=== PATIENT | female | born 1965 | race Caucasian/White ===

== ENCOUNTER 2016-06-19 09:25 | Emergency (ER) | payer OTHER, BC ==
[2016-06-19] MEDS ORDERED: DIPH/PERTUSS(ACELL)/TETANUS VAC/PF 0.5 ML SYR (>=10YO) IM ONE (09:58)
[2016-06-19] MEDS ORDERED: OXYCODONE-ACETAMINOPHEN 5-325 MG TABLET PO ONE (09:58)
--- NOTE | 2016-06-19 11:28 | ER Document Report ---
HPI - HPI Patient complains to provider of: knee injury Onset: Yesterday Onset/Duration: Sudden Quality of pain: Sharp Pain Level: 5 Context: Patient states she tripped over someone else's leg falling on her left knee yesterday. Patient complains of pain and swelling. Associated Symptoms: Other - Left knee pain. denies: Fever Exacerbated by: Movement, Walking Relieved by: Denies Similar symptoms previously: No Recently seen / treated by doctor: No - ROS ROS below otherwise negative: Yes Systems Reviewed and Negative: Yes All other systems reviewed and negative - CONSTITUTIONAL Constitutional: DENIES: Fever - MUSCULOSKELETAL Musculoskeletal: REPORTS: Extremity pain, Swelling - DERM Skin Problems: Abrasion - NURSING COMMENTS Comment: Pt arrived to ED with c/o severe left knee pain s/p tripping yesterday at work and falling on left knee. Pt states she tried to ice and elevate leg but pain has increased. Pt has half dollar size abrasion to left knee with redness around site. Pt has increased pain with ambulations. Pt has slight swelling to left knee. Pt has even rise and fall of chest. Pt c/o severe pain to knee at this time. Family at bedside. Will continue to monitor. Past Medical History - General Information source: Patient - Social History Smoking Status: Current Every Day Smoker Cigarette use (# per day): Yes Chew tobacco use (# tins/day): No Frequency of alcohol use: Social Drug Abuse: None Occupation: restaurant Family History: Reviewed & Not Pertinent Patient has suicidal ideation: No Patient has homicidal ideation: No Renal/ Medical History: Denies: Hx Peritoneal Dialysis Psychiatric Medical History: Reports: Hx Depression Past Surgical History: Reports: Hx Orthopedic Surgery - b/l knees - Immunizations Hx Diphtheria, Pertussis, Tetanus Vaccination: No Vertical Provider Document - CONSTITUTIONAL Exam Limitations: No Limitations General Appearance: WD/WN, No Apparent Distress - INFECTION CONTROL TRAVEL OUTSIDE OF THE [place] IN LAST 30 DAYS: No - HEENT HEENT: Atraumatic, Normocephalic - NECK Neck: Normal Inspection - RESPIRATORY Respiratory: No Respiratory Distress O2 Sat by Pulse Oximetry: 96 - CARDIOVASCULAR Pulses: Normal: Dorsalis pedis - BACK Back: Normal Inspection - MUSCULOSKELETAL/EXTREMETIES Musculoskeletal/Extremeties: MAEW, Tender - Patient with tenderness over left patella, patient with small joint effusion to left knee. No laxity with varus or valgus maneuvers. Patellar tendon intact. Patient with overlying abrasion to left knee, Edema - NEURO Level of Consciousness: Awake, Alert, Appropriate Motor/Sensory: No Motor Deficit - DERM Integumentary: Warm, Dry Notes: Abrasion to left knee Course - Vital Signs Vital signs: Temp Pulse Resp BP Pulse Ox 98.1 F 86 20 128/72 H 96 06/19/16 09:40 06/19/16 09:41 06/19/16 09:40 06/19/16 09:40 06/19/16 09:40 - Diagnostic Test Radiology reviewed: Reports reviewed Procedures - Immobilization Left Knee Pre-Proc Neuro Vasc Exam: Normal Immobilizer type: Knee immobilizer Performed by: PCT Post-Proc Neuro Vasc Exam: Normal Alignment checked and good: Yes Discharge - Discharge Clinical Impression: Knee effusion, left, Abrasion Condition: Stable Disposition: HOME, SELF-CARE Instructions: Knee Immobilizing Splint ([facility]), Sprained Knee ([facility]), Oral Narcotic Medication ([facility]), Suspected Internal Knee Injury ([facility]), Use of Crutches ([facility]), Ice & Elevation ([facility]), Tetanus Immunization Given ([facility]), Abrasions ([facility]) Additional Instructions: Return immediately for any new or worsening symptoms Followup with your primary care provider, call tomorrow to make a followup appointment Follow up with orthopedic Dr. for any continued pain or problems Weightbearing as tolerated Wear immobilizer for the next 4-5 days and then remove. Prescriptions: Oxycodone HCl/Acetaminophen [Percocet 5-325 mg Tablet] 1 tab PO ASDIR PRN #15 tablet PRN Reason: Forms: Return to Work Referrals: [facility] [Provider Group] - Follow up as needed
[2016-06-19 11:49] VITALS: BP 124/68
== END 2016-06-19 11:53 | disposition home or self-care (01) ==
LOC: ER 09:25
DX: S80.212A Abrasion, left knee, initial encounter (principal); M25.462 Effusion, left knee; W01.0XXA Fall on same level from slipping, tripping and stumbling without subsequent striking against object, initial encounter; Y92.511 Restaurant or cafe as the place of occurrence of the external cause; Y99.0 Civilian activity done for income or pay; F17.210 Nicotine dependence, cigarettes, uncomplicated; Z98.890 Other specified postprocedural states
CPT/HCPCS: 99283; 90471; 73562; 90715; L1830

== ENCOUNTER 2018-07-14 03:44 | Emergency (ER) | payer BC, OTHER ==
[2018-07-14] MEDS ORDERED: ONDANSETRON HCL INJ/PF 4 MG/2 ML SDV IV ONE (04:15)
[2018-07-14] MEDS ORDERED: NORMAL SALINE 1000 ML 1,000 ML IV ONE (04:15)
[2018-07-14 04:41] LABS: ABSOLUTE LYMPHOCYTES (AUTO) 0.6 10^3/uL (0.5-4.7); ABSOLUTE MONOCYTES (AUTO) 0.4 10^3/uL (0.1-1.4); ABSOLUTE NEUT (AUTO) 5.2 10^3/uL (1.7-8.2); BASOPHILS % (AUTO) 0.5 % (0-2); HEMATOCRIT 49.9 % (36.0-47.0); HEMOGLOBIN 17.4 g/dL (12.0-15.5); LYMPHOCYTES % (AUTO) 9.8 % (13-45); MEAN CORPUSCULAR HEMOGLOBIN 31.5 pg (27.0-33.4); MEAN CORPUSCULAR HGB CONC 34.8 g/dL (32.0-36.0); MEAN CORPUSCULAR VOLUME 91 fl (80-97); MONOCYTES % (AUTO) 6.4 % (3-13); PLATELET COUNT 226 10^3/uL (150-450); RED BLOOD COUNT 5.51 10^6/uL (3.72-5.28); RED CELL DISTRIBUTION WIDTH 13.5 % (11.5-14.0); SEGMENTED NEUTROPHILS % (AUTO) 83.3 % (42-78); TOTAL CELLS COUNTED % (AUTO) 100 %; WHITE BLOOD COUNT 6.3 10^3/uL (4.0-10.5)
[2018-07-14 04:55] LABS: BLOOD UREA NITROGEN 21 mg/dL (7-20); CALCIUM 9.2 mg/dL (8.4-10.2); CARBON DIOXIDE 29 mmol/L (22-30); CHLORIDE 97 mmol/L (98-107); GLUCOSE 137 mg/dL (75-110); POTASSIUM 4.2 mmol/L (3.6-5.0); SODIUM 137.4 mmol/L (137-145)
[2018-07-14 04:56] LABS: ALANINE AMINOTRANSFERASE 53 U/L (9-52); ALBUMIN 4.4 g/dL (3.5-5.0); ALKALINE PHOSPHATASE 103 U/L (38-126); ANION GAP 11 (5-19); ASPARTATE AMINO TRANSFERASE 52 U/L (14-36); BILIRUBIN,DIRECT 0.3 mg/dL (0.0-0.4); BILIRUBIN,TOTAL 0.4 mg/dL (0.2-1.3); LIPASE 72.1 U/L (23-300)
--- NOTE | 2018-07-14 05:03 | RADIOLOGY REPORT (SQ) ---
CLINICAL HISTORY: cough, fever, vomiting COMPARISON: None. 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 Lungs are clear without consolidation, atelectasis, mass or edema. There is no pleural effusion. There is no pneumothorax. There are no acute osseous findings. IMPRESSION: Clear lungs.
[2018-07-14 05:35] LABS: A TYPE INFLUENZA AG NEGATIVE (NEGATIVE); B INFLUENZA AG NEGATIVE (NEGATIVE)
--- NOTE | 2018-07-14 05:46 | ER Document Report ---
Entered by NEY JOHNSON SCRIBE 07/14/18 0422 Acting as scribe for:KATHARINE ASHTON DO ED Flu Like - General Chief Complaint: Flu Symptoms Stated Complaint: FLU LIKE SYMPTOMS Time Seen by Provider: 07/14/18 04:08 Primary Care Provider: TULIO MAIN MD [Primary Care Provider] - Follow up as needed Mode of Arrival: Ambulatory Information source: Patient Notes: Patient is a 52 year old female presenting to the emergency department complain ing of multiple symptoms including cough, congestion and a fever onset 4 days ago. Patient states she initially attributed her cough to a chest cold but states her symptoms have been worsening. She states she is unable to hold any food or liquids down further stating she has been vomiting and having diarrhea since earlier this evening. She also complains of abdominal pain but attributes this to coughing and vomiting further stating "I'm going to get a six pack". She also reports a fever of 102.0 as well as a headache and nasal congestion. She reports taking her parents to the doctors office 4 days ago. She denies any hematemeis or blood in stool. TRAVEL OUTSIDE OF THE [place] IN LAST 30 DAYS: No - Related Data Allergies/Adverse Reactions: No Known Allergies Allergy (Unverified 06/19/16 09:44) Past Medical History - General Information source: Patient - Social History Smoking Status: Current Every Day Smoker Cigarette use (# per day): Yes Smoking Education Provided: No Frequency of alcohol use: Social Drug Abuse: None Family History: Reviewed & Not Pertinent Psychiatric Medical History: Reports: Hx Depression Past Surgical History: Reports: Hx Orthopedic Surgery - b/l knees - Immunizations Hx Diphtheria, Pertussis, Tetanus Vaccination: No Review of Systems - Review of Systems Constitutional: See HPI EENT: See HPI Cardiovascular: No symptoms reported Respiratory: See HPI, Cough Gastrointestinal: See HPI, Abdominal pain, Diarrhea, Vomiting Genitourinary: No symptoms reported Female Genitourinary: No symptoms reported Musculoskeletal: No symptoms reported Skin: No symptoms reported Hematologic/Lymphatic: No symptoms reported Neurological/Psychological: No symptoms reported -: Yes All other systems reviewed and negative Physical Exam - Vital signs Vitals: Temp Pulse Resp BP Pulse Ox 97.9 F 88 17 139/79 H 93 07/14/18 03:48 07/14/18 03:48 07/14/18 03:48 07/14/18 03:48 07/14/18 03:48 - Notes Notes: GENERAL: Alert, interacts well. No acute distress but does appear mildly uncomfortable. HEAD: Normocephalic, atraumatic. EYES: Pupils equal, round, and reactive to light. Extraocular movements intact. ENT: Oral mucosa moist, tongue midline. Mild nasal congestion. NECK: Full range of motion. Supple. Trachea midline. LUNGS: Clear to auscultation bilaterally, no wheezes, rales, or rhonchi. No respiratory distress. HEART: Regular rate and rhythm. No murmurs, gallops, or rubs. ABDOMEN: Soft, diffusely very mild tenderness to palpation. Non-distended. Bowel sounds present in all 4 quadrants. EXTREMITIES: Moves all 4 extremities spontaneously. NEUROLOGICAL: Alert and oriented x3. Normal speech. PSYCH: Normal affect, normal mood. SKIN: Warm, dry, normal turgor. No rashes or lesions noted. Course - Re-evaluation Re-evalutation: 07/14/18 05:44 CBC unremarkable, CMP grossly unremarkable, AST and ALT are both slightly elevated, lipase is normal, flu swabs are negative, chest x-ray shows no acute process. Vomiting has stopped, patient is feeling somewhat better. Patient is being given an oral challenge of water at this time. If she is able to hold it down for the next 30 minutes she will be discharged home with Gabo and Amaury lerner. - Vital Signs Vital signs: Temp Pulse Resp BP Pulse Ox 97.9 F 88 17 139/79 H 93 07/14/18 03:48 07/14/18 03:48 07/14/18 03:48 07/14/18 03:48 07/14/18 03:48 - Laboratory Result Diagrams: 07/14/18 04:25 07/14/18 04:25 Laboratory results interpreted by me: 07/14/18 07/14/18 04:25 04:25 RBC 5.51 H Hgb 17.4 H Hct 49.9 H Seg Neutrophils % 83.3 H Lymphocytes % 9.8 L Chloride 97 L BUN 21 H Creatinine 0.47 L Glucose 137 H AST 52 H ALT 53 H Discharge - Discharge Clinical Impression: Nausea vomiting and diarrhea Condition: Stable Disposition: HOME, SELF-CARE Additional Instructions: Vomiting Vomiting (or nausea without vomiting) can be caused by many other different problems. It can mean that something's wrong with the stomach, such as ulcers or inflammation or the intestinal tract, such as appendicitis. But it can also be a symptom of a problem that has nothing to do with the stomach or intestines. Vomiting is common with severe headaches, earaches, tonsillitis, and kidney infections, etc. We see it with pneumonia or heart attacks. Drugs can cause nausea and vomiting. Many abdominal problems cause vomiting; for example, gallstones, kidney stones, pancreatitis, and intestinal obstruction (blocked bowels). In most cases, curing the vomiting depends on fixing the problem that caused it. For temporary relief, we may use an anti-nausea medicine. For home use, we can prescribe suppositories, chewable pills, pills that dissolve in the mouth, or liquid anti-nausea drugs. If the vomiting seems to be caused by a problem in the stomach, acid-suppressing drugs may be prescribed as well. It's important to avoid dehydration. Sip small amounts of clear liquids (soft drinks, tea, broth, etc) . Try to take fluids frequently even if you are vomiting to prevent dehydration. Take increasing amounts of fluid and when liquids are being consumed successfully, advance to small amounts of bland food (toast, soups, mashed potatoes, etc.) until you are able to resume a regular diet. Avoid aspirin, tobacco, and alcohol. If the vomiting worsens, if the problem that's making you vomit worsens, or if there's evidence of bleeding in the stomach (such as black, tarry stool, or bloody or black vomit), you should return immediately. Also, return if abdominal pain worsens or becomes localized to one area or you develop high fever. Call your doctor if you aren't improved in 24 hours. Diarrhea Diarrhea means frequent, watery stools. There are many causes. Any problem that keeps the intestinal tract from absorbing water from the stool can lead to diarrhea. A sudden new diarrhea problem is usually caused by a virus, food sen sitivity, toxic bacteria, or drugs. In this case, we expect the problem to go away soon. Testing is done only if you seem seriously ill from the diarrhea. If you have chronic diarrhea, or diarrhea that keeps coming back, we need to find out why. Chronic diarrhea can be due to inflammation of the bowels such as Crohn's disease or ulcerative colitis, food sensitivity such as intolerance to lactose or wheat protein, irritable bowel syndrome, and other problems. If your diarrhea is a significant problem but it's not clear why you have it, we'll refer you to a specialist for further testing. During an episode of diarrhea, drink small amounts (two to six ounces) of clear liquids (soft drinks, sport drinks, herb teas, broth, etc). Take fluids frequently to prevent dehydration. It's usually not a problem to take mild anti- diarrhea medication such as Imodium. Kaopectate and Pepto-Bismol can turn your poop black. As the diarrhea eases, advance to small amounts of bland food (mashed potato, toast) for 24 hours. Call the physician if blood appears in your vomit or stool, if vomiting lasts longer than 24 hours, if the abdominal pain worsens or becomes localized to one area, if you develop high fever, or if you become lightheaded and weak. Prescriptions: Ondansetron [Zofran Odt 4 mg Tablet] 1 - 2 tab PO Q4H PRN #15 tab.rapdis PRN Reason: For Nausea/Vomiting Promethazine HCl [Phenergan 25 mg Tablet] 1 - 2 tab PO Q6H PRN #15 tablet PRN Reason: Forms: Return to Work Referrals: TULIO MAIN MD [Primary Care Provider] - Follow up as needed Scribe Attestation: 07/14/18 05:46 I personally performed the services described in the documentation, reviewed and edited the documentation which was dictated to the scribe in my presence, and it accurately records my words and actions. I personally performed the services described in the documentation, reviewed and edited the documentation which was dictated to the scribe in my presence, and it accurately records my words and actions.
[2018-07-14 06:46] VITALS: BP 136/60
== END 2018-07-14 06:46 | disposition home or self-care (01) ==
LOC: ER 03:44
DX: R11.2 Nausea with vomiting, unspecified (principal); R19.7 Diarrhea, unspecified; R05 Cough; R50.9 Fever, unspecified; R10.9 Unspecified abdominal pain; R10.817 Generalized abdominal tenderness; R51 Headache; R09.81 Nasal congestion; R74.0 Nonspecific elevation of levels of transaminase and lactic acid dehydrogenase [LDH]; F17.210 Nicotine dependence, cigarettes, uncomplicated
CPT/HCPCS: 99283; 96374; 36415; 83690; 85025; 80053; 87804; 71046; J2405; J7030

== ENCOUNTER 2019-10-18 06:26 | Emergency (ER) | payer OTHER ==
[2019-10-18 07:47] LABS: ABSOLUTE BASOPHILS # (AUTO) 0.1 10^3/uL (0.0-0.2); ABSOLUTE LYMPHOCYTES (AUTO) 1.5 10^3/uL (0.5-4.7); ABSOLUTE NEUT (AUTO) 10.8 10^3/uL (1.7-8.2); BASOPHILS % (AUTO) 0.6 % (0-2); EOSINOPHILS % (AUTO) 0.1 % (0-6); HEMATOCRIT 49.6 % (36.0-47.0); HEMOGLOBIN 17.3 g/dL (12.0-15.5); LYMPHOCYTES % (AUTO) 11.4 % (13-45); MEAN CORPUSCULAR HEMOGLOBIN 32.2 pg (27.0-33.4); MEAN CORPUSCULAR HGB CONC 34.9 g/dL (32.0-36.0); MEAN CORPUSCULAR VOLUME 92 fl (80-97); MONOCYTES % (AUTO) 7.7 % (3-13); PLATELET COUNT 382 10^3/uL (150-450); RED BLOOD COUNT 5.38 10^6/uL (3.72-5.28); RED CELL DISTRIBUTION WIDTH 13.4 % (11.5-14.0); SEGMENTED NEUTROPHILS % (AUTO) 80.2 % (42-78); TOTAL CELLS COUNTED % (AUTO) 100 %; WHITE BLOOD COUNT 13.4 10^3/uL (4.0-10.5)
[2019-10-18 08:02] LABS: ALBUMIN 4.7 g/dL (3.5-5.0); ALKALINE PHOSPHATASE 88 U/L (38-126); ANION GAP 11 (5-19); ASPARTATE AMINO TRANSFERASE 27 U/L (14-36); BILIRUBIN,TOTAL 0.8 mg/dL (0.2-1.3); BLOOD UREA NITROGEN 20 mg/dL (7-20); CALCIUM 9.8 mg/dL (8.4-10.2); CARBON DIOXIDE 28 mmol/L (22-30); CHLORIDE 95 mmol/L (98-107); GLUCOSE 122 mg/dL (75-110); POTASSIUM 3.5 mmol/L (3.6-5.0); TOTAL PROTEIN 7.7 g/dL (6.3-8.2)
[2019-10-18] MEDS ORDERED: LOPERAMIDE HCL 2 MG CAPSULE PO ONE (08:42)
[2019-10-18] MEDS ORDERED: NORMAL SALINE 1000 ML 1,000 ML IV ONE (08:42)
[2019-10-18] MEDS ORDERED: ONDANSETRON HCL INJ/PF 4 MG/2 ML SDV IV ONE (08:42)
--- NOTE | 2019-10-18 08:44 | ER Document Report ---
ED GI/ - General Chief Complaint: Nausea/Vomiting/Diarrhea Stated Complaint: NAUSEA,VOMITING,DIARRHEA Time Seen by Provider: 10/18/19 08:15 Primary Care Provider: TULIO MAIN MD [Primary Care Provider] - Follow up in 3-5 days Mode of Arrival: Ambulatory Information source: Patient Notes: Patient presents with a 3-day history of nausea vomiting diarrhea. Patient reports vomiting once and having diarrhea once today. Patient complains of generalized abdominal cramping, malaise and body aches. Patient states that she did have a fever of 101 at home yesterday. Patient denies any cough or cold symptoms. TRAVEL OUTSIDE OF THE [place] IN LAST 30 DAYS: No - HPI Patient complains to provider of: Abdominal pain, Diarrhea, Vomiting Onset: Other - 3 days Timing/Duration: Gradual Quality of pain: Achy Pain Level: 2 Location: Other - Generalized abdomen Associated symptoms: Diarrhea, Fever, Nausea, Vomiting. denies: Loss of appetite, Urinary hesitancy, Urinary frequency, Urinary retention, Urinary urgency Exacerbated by: Denies Relieved by: Denies Similar symptoms previously: No Recently seen / treated by doctor: No - Related Data Allergies/Adverse Reactions: No Known Allergies Allergy (Unverified 06/19/16 09:44) Past Medical History - General Information source: Patient - Social History Smoking Status: Current Every Day Smoker Frequency of alcohol use: Social Drug Abuse: None Occupation: Foodservice Family History: Reviewed & Not Pertinent Patient has homicidal ideation: No Renal/ Medical History: Denies: Hx Peritoneal Dialysis Psychiatric Medical History: Reports: Hx Anxiety, Hx Depression Past Surgical History: Reports: Hx Orthopedic Surgery - b/l knees - Immunizations Hx Diphtheria, Pertussis, Tetanus Vaccination: No Review of Systems - Review of Systems Constitutional: Fever, Weakness. denies: Recent illness EENT: No symptoms reported Cardiovascular: No symptoms reported. denies: Chest pain Respiratory: No symptoms reported. denies: Cough, Short of breath Gastrointestinal: Abdominal pain, Diarrhea, Nausea, Vomiting. denies: Black stools, Rectal bleeding Genitourinary: No symptoms reported. denies: Dysuria Female Genitourinary: No symptoms reported Musculoskeletal: No symptoms reported Skin: No symptoms reported Hematologic/Lymphatic: No symptoms reported Neurological/Psychological: No symptoms reported Physical Exam - Vital signs Vitals: Temp Pulse Resp BP Pulse Ox 98.1 F 64 14 144/73 H 97 10/18/19 07:00 10/18/19 07:00 10/18/19 07:00 10/18/19 07:00 10/18/19 07:00 - General General appearance: Appears well, Alert In distress: None - HEENT Head: Normocephalic, Atraumatic Eyes: Normal Conjunctiva: Normal Nasal: Normal Mouth/Lips: Normal Neck: Normal, Supple - Respiratory Respiratory status: No respiratory distress Chest status: Nontender Breath sounds: Normal. No: Rales, Rhonchi, Stridor, Wheezing Chest palpation: Normal - Cardiovascular Rhythm: Regular Heart sounds: S1 appreciated, S2 appreciated Murmur: No - Abdominal Inspection: Normal Distension: No distension Bowel sounds: Normal Tenderness: Tender - Diffuse abdominal tenderness. No: Guarding Organomegaly: No organomegaly - Back Back: Normal, Nontender. No: CVA tenderness - Extremities General upper extremity: Normal inspection, Normal ROM General lower extremity: Normal inspection, Normal ROM - Neurological Neuro grossly intact: Yes Cognition: Normal Driscoll Coma Scale Eye Opening: Spontaneous Driscoll Coma Scale Verbal: Oriented Sophia Coma Scale Motor: Obeys Commands Driscoll Coma Scale Total: 15 - Psychological Associated symptoms: Normal affect, Normal mood - Skin Skin Temperature: Warm Skin Moisture: Dry Skin Color: Normal Course - Re-evaluation Re-evalutation: 10/18/19 10:[address] Sanders regarding patient's ultrasound report, recommends adding on CT scan to evaluate for any pancreatic mass. 10/18/19 12:07 Patient without any additional vomiting or diarrhea while here in the department. Patient states that she does have some continued cramping although the pain is manageable. No concern for any biliary obstruction or pancreatic mass. Patient with elevated lipase although does not at this time meet diagnostic criteria for pancreatitis. Patient advised of findings on CT scan. Patient encouraged to follow-up with her primary doctor to have a repeat CT scan in 3 months. Patient also encouraged to see her primary doctor to have her laboratory tests rechecked including her lipase test. Patient encouraged to avoid any alcohol use. Patient does drink alcohol but does not do so daily. Discussed worsening signs or symptoms that patient should return immediately for. Patient verbalized understanding is agreeable with discharge plan of care. - Vital Signs Vital signs: Temp Pulse Resp BP Pulse Ox 98.2 F 61 16 153/83 H 99 10/18/19 13:24 10/18/19 13:24 10/18/19 13:24 10/18/19 13:24 10/18/19 13:24 - Laboratory Result Diagrams: 10/18/19 07:30 10/18/19 07:30 Laboratory results interpreted by me: 10/18/19 10/18/19 10/18/19 07:30 07:30 07:30 WBC 13.4 H RBC 5.38 H Hgb 17.3 H Hct 49.6 H Lymph % (Auto) 11.4 L Absolute Neuts (auto) 10.8 H Seg Neutrophils % 80.2 H Sodium 133.5 L Potassium 3.5 L Chloride 95 L Glucose 122 H Lipase 841.1 H Urine Protein Urine Blood 10/18/19 08:45 WBC RBC Hgb Hct Lymph % (Auto) Absolute Neuts (auto) Seg Neutrophils % Sodium Potassium Chloride Glucose Lipase Urine Protein 30 H Urine Blood MODERATE H 10/18/19 12:07 Labs- All tests 24 hr 10/18/19 10/18/19 10/18/19 07:30 07:30 07:30 WBC 13.4 H RBC 5.38 H Hgb 17.3 H Hct 49.6 H MCV 92 MCH 32.2 MCHC 34.9 RDW 13.4 Plt Count 382 Lymph % (Auto) 11.[address] [place] % (Auto) 7.7 Eos % (Auto) 0.1 Baso % (Auto) 0.6 Absolute Neuts (auto) 10.8 H Absolute Lymphs (auto) 1.5 Absolute Monos (auto) 1.0 Absolute Eos (auto) 0.0 Absolute Basos (auto) 0.1 Seg Neutrophils % 80.2 H Sodium 133.5 L Potassium 3.5 L Chloride 95 L Carbon Dioxide 28 Anion Gap 11 BUN 20 Creatinine 0.55 Est GFR ( Amer) > 60 Est GFR (MDRD) Non-Af > 60 Glucose 122 H Calcium 9.8 Total Bilirubin 0.8 Direct Bilirubin 0.0 Neonat Total Bilirubin Not Reportable Neonat Direct Bilirubin Not Reportable Neonat Indirect Bili Not Reportable AST 27 ALT 16 Alkaline Phosphatase 88 Total Protein 7.7 Albumin 4.7 Lipase 841.1 H Urine Color Urine Appearance Urine pH Ur Specific Kodak Urine Protein Urine Glucose (UA) Urine Ketones Urine Blood Urine Nitrite Urine Bilirubin Urine Urobilinogen Ur Leukocyte Esterase Urine WBC (Auto) Urine RBC (Auto) Urine Bacteria (Auto) Squamous Epi Cells Auto Urine Mucus (Auto) Urine Ascorbic Acid 10/18/19 08:45 WBC RBC Hgb Hct MCV MCH MCHC RDW Plt Count Lymph % (Auto) [place] % (Auto) Eos % (Auto) Baso % (Auto) Absolute Neuts (auto) Absolute Lymphs (auto) Absolute Monos (auto) Absolute Eos (auto) Absolute Basos (auto) Seg Neutrophils % Sodium Potassium Chloride Carbon Dioxide Anion Gap BUN Creatinine Est GFR ( Amer) Est GFR (MDRD) Non-Af Glucose Calcium Total Bilirubin Direct Bilirubin Neonat Total Bilirubin Neonat Direct Bilirubin Neonat Indirect Bili AST ALT Alkaline Phosphatase Total Protein Albumin Lipase Urine Color YELLOW Urine Appearance CLEAR Urine pH 7.0 Ur Specific Kodak 1.016 Urine Protein 30 H Urine Glucose (UA) NEGATIVE Urine Ketones NEGATIVE Urine Blood MODERATE H Urine Nitrite NEGATIVE Urine Bilirubin NEGATIVE Urine Urobilinogen NEGATIVE Ur Leukocyte Esterase NEGATIVE Urine WBC (Auto) 2 Urine RBC (Auto) 7 Urine Bacteria (Auto) 1+ Squamous Epi Cells Auto 1 Urine Mucus (Auto) RARE Urine Ascorbic Acid NEGATIVE - Diagnostic Test Radiology reviewed: Reports reviewed Discharge - Discharge Clinical Impression: Elevated lipase, Nausea vomiting and diarrhea, Pulmonary nodule, Encounter for screening laboratory testing for COVID-19 virus Condition: Stable Disposition: HOME, SELF-CARE Instructions: COVID-19 Guidance for Persons Under Investigation, Antinausea Medication ([facility]), Diarrhea, Nonspecific ([facility]), Growth or Mass, Pending Workup ([facility]), Intravenous (IV) Fluids ([facility]), Pancreatitis ([facility]), Vomiting ([facility]) Additional Instructions: Return immediately for any new or worsening symptoms Followup with your primary care provider, call tomorrow to make a followup appointment Your CT scan showed an incidental finding of a pulmonary nodule. Is recommended that you have a repeat CT scan in 3 months. Your primary doctor can order this test for you. Avoid any alcohol As a person under investigation for Covid 19, the [place] department of Health and Human Services, division of public health advises you to adhere to the following guidance until your test results are reported to you. If your test result is positive, you will receive additional information from your provider and your local health department at that time. Remain at home until you are cleared by the health provider or public health authorities. Keep a log of visitors to your home, notify any visitors to your home of your isolation status. If you plan to move to a new address or leave the county, notify the local health department in your County. Call your doctor or seek care if you have an urgent medical need. Before seeking medical care, call ahead to get instructions from the provider before arriving at the medical office clinic or hospital. Notify them that you are being tested for the virus that causes Covid 19 so that arrangements can be made, as necessary, to prevent transmission to others in the healthcare setting. Next, notify the local health department in your county. If a medical emergency arises and you need to call 911, inform the first resp onders that you are being tested for the virus that causes Covid 19. Next, notify the local health department in your county. Prescriptions: Dicyclomine HCl [Bentyl 20 mg Tablet] 20 mg PO QID PRN #16 tablet PRN Reason: Ondansetron [Zofran Odt 4 mg Tablet] 1 tab PO Q6H #15 tab.rapdis Forms: Return to Work Referrals: TULIO MAIN MD [Primary Care Provider] - Follow up in 3-5 days
[2019-10-18 09:15] LABS: APPEARANCE,URINE CLEAR; BILIRUBIN,URINE NEGATIVE (NEGATIVE); COLOR,URINE YELLOW; GLUCOSE, URINE NEGATIVE (NEGATIVE); KETONES,URINE NEGATIVE (NEGATIVE); LEUKOCYTE ESTERASE,URINE NEGATIVE (NEGATIVE); NITRITE,URINE NEGATIVE (NEGATIVE); PROTEIN,URINE 30 mg/dL (NEGATIVE); URINE SPECIFIC GRAVITY 1.016; UROBILINOGEN,URINE NEGATIVE mg/dL (<2.0)
--- NOTE | 2019-10-18 10:24 | RADIOLOGY REPORT (SQ) ---
EXAM DESCRIPTION: U/S ABDOMEN LIMITED W/O DOP IMAGES COMPLETED DATE/TIME: 10/18/2019 10:04 am REASON FOR STUDY: abd pain, elevated lipase COMPARISON: None. TECHNIQUE: Dynamic and static grayscale images acquired of the abdomen and recorded on PACS. Additio nal selected color Doppler and spectral images recorded. LIMITATIONS: None. FINDINGS: PANCREAS: The visualized portions of the pancreas appear normal. LIVER: Normal contour and echotexture. LIVER VASCULATURE: Hepatopetal directional flow in the portal veins. GALLBLADDER: The gallbladder is partially contracted and its wall measures 1.3 mm in thickness. Ther e is no cholelithiasis, sludge or pericholecystic fluid. ULTRASOUND-DETECTED COLLADO'S SIGN: Negative. INTRAHEPATIC DUCTS AND COMMON DUCT: The common bile duct measures 9 mm in diameter. There is no dila tation of the intrahepatic bile ducts. INFERIOR VENA CAVA: Patent. AORTA: No aneurysm. RIGHT KIDNEY: The right kidney measures 10.7 cm in length. There is no hydronephrosis. PERITONEAL AND RIGHT PLEURAL SPACE: No ascites or effusions. OTHER: No other findings. IMPRESSION: Borderline dilatation of the common bile duct without an associated abnormality of the g allbladder or dilatation of the intrahepatic bile ducts. TECHNICAL DOCUMENTATION: JOB ID: [id number] 2010 [employer]- All Rights Reserved Reading location - IP/workstation name: [email or web address]
--- NOTE | 2019-10-18 11:25 | RADIOLOGY REPORT (SQ) ---
EXAM DESCRIPTION: CT ABD/PELVIS WITH IV ONLY IMAGES COMPLETED DATE/TIME: 10/18/2019 11:02 am REASON FOR STUDY: abd pain, elevated lipase COMPARISON: None. TECHNIQUE: CT scan of the abdomen and pelvis performed using helical scanning technique with dynamic intravenous contrast injection. No oral contrast. Images reviewed with lung, soft tissue, and bone windows. Reconstructed coronal and sagittal MPR images reviewed. Delayed images for evaluation of the urinary system also acquired. All images stored on PACS. All CT scanners at this facility use dose modulation, iterative reconstruction, and/or weight based d osing when appropriate to reduce radiation dose to as low as reasonably achievable (ALARA). [facility]: Dose Right [facility]: CareDose [facility]: Dose Right [facility]: Teradose 4D [facility]: [employer] CONTRAST TYPE AND DOSE: Contrast/concentration: Isovue 350.00 mg/ml; Total Contrast Delivered: 62.0 ml; Total Saline Delivered: 65.0 ml RENAL FUNCTION: GFR > 60. RADIATION DOSE: CT Rad equipment meets quality standard of care and radiation dose reduction techniq ues were employed. CTDIvol: 4.8 - 5.3 mGy. DLP: 520 mGy-cm. LIMITATIONS: None. FINDINGS: LOWER CHEST: Subpleural nodular opacity in the right lower lobe (image 10 of series 3) nicholas t measures 11 x 11 mm. LIVER: The 9 x 9 mm hypodense lesion in the left hepatic lobe (image 16 of series 3) is too small to characterize. The geographic area of hypoattenuation along the falciform ligament could represent fo carline hepatic steatosis or profusion variant. There is a punctate calcification within segment 2 of th e liver (image 16 of series 3). The portal veins are patent. SPLEEN: No splenomegaly or splenic mass. PANCREAS: No acute abnormality of the pancreas ; in particular, no peripancreatic inflammation, pancr eatic ductal dilatation, or peripancreatic fluid collection. GALLBLADDER: No abnormality that is apparent on CT. ADRENAL GLANDS: Nonspecific mild nodular enlargement of the left adrenal gland that could represent a denomatous hyperplasia. RIGHT KIDNEY AND URETER: No solid mass, hydronephrosis, nephrolithiasis, hydroureter or ureterolithia sis. LEFT KIDNEY AND URETER: 13 x 8 mm calculus within an upper pole calyx, 4 mm calculus within a lower p ole calyx, and parapelvic cyst. There is no solid mass, hydronephrosis, hydroureter or ureterolithia sis. AORTA AND VESSELS: No aneurysm or dissection of the abdominal aorta. Variant retroaortic left renal vein. RETROPERITONEUM: No retroperitoneal adenopathy, hemorrhage or mass. BOWEL AND PERITONEAL CAVITY: No bowel obstruction, bowel wall thickening or pericolonic/ perienteric inflammation. No mesenteric adenopathy, free intraperitoneal fluid or mesenteric/ omental inflammati on. APPENDIX: Normal. PELVIS: No abnormality of the uterus or adnexa that is apparent on CT. The urinary bladder is disten ded and normal in appearance. ABDOMINAL WALL: No mass or hernia. BONES: No fracture or osseous lesion. OTHER: No other finding. IMPRESSION: 1. 11 x 11 mm subpleural nodular opacity in the right lower lobe (image 10 of series 3) that could represent a nodule or round atelectasis. A follow-up CT of the chest in 3 months is gali mmended. 2. No acute abnormality of the pancreas ; in particular, no peripancreatic inflammation, pancreatic ductal dilatation, or peripancreatic fluid collection. 3. 13 x 8 mm left upper pole caliceal calculus and 4 mm left lower pole caliceal calculus. TECHNICAL DOCUMENTATION: JOB ID: [id number] Quality ID # [id number]: Final reports with documentation of one or more dose reduction techniques (e.g., Au tomated exposure control, adjustment of the mA and/or kV according to patient size, use of iterative reconstruction technique) 2010 [employer]- All Rights Reserved Reading location - IP/workstation name: [email or web address]
--- NOTE | 2019-10-18 12:02 | ER Document Report ---
Doctor's Note Notes: 10/18/19 12:01 This is a middle-aged female seen primarily by midlevel provider. Clinically she appears to have a low-grade pancreatitis. Gallbladder ultrasound was negative for stones or significant ductal dilatation. She also had a CT abdomen pelvis which showed nonspecific findings only. Her LFTs are normal. She denies abuse of alcohol. No recent changes medications. I evaluated patient with midlevel provider. At this time I believe she can be reasonably followed outpatient basis with repeat labs to be checked by her primary care physician within next 3 to 4 days. She can return here for new or worsening symptoms. She is to abstain from any intake of alcohol. She will be treated symptomatically at this time.
[2019-10-18] MEDS ORDERED: DICYCLOMINE HCL 20 MG TABLET PO ONE (12:07)
[2019-10-18 13:25] VITALS: BP 153/83
== END 2019-10-18 13:24 | disposition home or self-care (01) ==
LOC: ER 06:26
DX: R74.8 Abnormal levels of other serum enzymes (principal); R91.1 Solitary pulmonary nodule; R10.84 Generalized abdominal pain; R11.2 Nausea with vomiting, unspecified; R19.7 Diarrhea, unspecified; R53.81 Other malaise; M79.10 Myalgia, unspecified site; R50.9 Fever, unspecified; R10.9 Unspecified abdominal pain; F17.200 Nicotine dependence, unspecified, uncomplicated; Z20.828 Contact with and (suspected) exposure to other viral communicable diseases
CPT/HCPCS: 99284; 96361; 96374; 36415; 83690; 85025; 87635; 80053; 81001; 76705; 74177; J3490; J2405; J7030; C9803